=== PATIENT | male | born 1980 | race African-American/Black ===

== ENCOUNTER 2021-04-21 14:19 | Emergency (ER) | payer OTHER ==
[~2021-04-21] VITALS: Ht 177.8 cm; Wt 74.8 kg
[2021-04-21] MEDS ORDERED: KETOROLAC TROMETH 60MG/2ML VIAL IM ONE (15:15)
[2021-04-21] MEDS ORDERED: METHOCARBAMOL 500 MG TAB PO ONE (15:15)
[2021-04-21 15:31] VITALS: BP 143/76
[2021-04-21] MEDS ORDERED: BACL10TA PO (15:44)
[2021-04-21] MEDS ORDERED: IBUP800T27 PO (15:44)
== END 2021-04-21 15:47 | disposition home or self-care (01) ==
LOC: ER 14:19
DX: M43.6 Torticollis (principal); Z79.1 Long term (current) use of non-steroidal anti-inflammatories (NSAID); Z79.899 Other long term (current) drug therapy
CPT/HCPCS: 96372; 99283; J1885

== ENCOUNTER 2021-09-24 10:05 | Emergency (ER) | payer OTHER ==
[~2021-09-24] VITALS: Ht 180.3 cm; Wt 85.7 kg
[~2021-09-24 10:05] MED LIST: BACL10TA PO; IBUP800T27 PO
[2021-09-24 11:21] LABS: Albumin 4.1 g/dL (3.4-5.0); Calcium 9.6 mg/dL (8.5-10.1); Magnesium 2.5 mg/dL (1.6-2.6); Potassium 4.5 mmol/L (3.5-5.1)
[2021-09-24 11:25] LABS: BUN/Creatinine Ratio 6.7; Bilirubin, Total 0.4 mg/dL (0.2-1.0); Total Protein 7.9 g/dL (6.4-8.2)
[2021-09-24 11:27] LABS: Basophils # (auto) 0 10 ^3/uL (0-0.2); Basophils % (auto) 0.9 % (0.0-2.0); Eosinophils # (auto) 0.1 10 ^3/uL (0-0.8); Eosinophils % (auto) 1.3 % (0.0-7.0); Hematocrit 42.5 % (41.0-53.0); Nucleated Red Blood Cells % 0.1 %; Red Blood Cells 4.36 10^6/uL (4.5-5.90); White Blood Cell 5.3 10^3/uL (4.4-10.8)
[2021-09-24 11:28] LABS: Hemoglobin 14.5 g/dL (13.5-17.5); Lymphocytes # (auto) 2.2 10 ^3/uL (0.4-5.4); Mean Corpuscular Hemoglobin 33.4 pg (28.0-32.0); Mean Corpuscular Hgb Conc. 34.2 g/dL (32.0-36.0); Mean Corpuscular Volume 97.5 fL (80.0-100.0); Monocytes # (auto) 0.3 10 ^3/uL (0-1.3); Monocytes % (auto) 6.6 % (0.0-12.0); Neutrophils # (auto) 2.6 10 ^3/uL (1.6-8.6); Neutrophils % (auto) 50.2 % (37.0-80.0); Red Cell Distribution Width 13.2 % (11.8-14.3)
[2021-09-24 14:18] LABS: Urine Bacteria NONE SEEN /hpf (None Seen); Urine Blood Negative /uL (Negative); Urine WBC <1 /hpf (0 - 3)
[2021-09-24 15:26] VITALS: BP 130/70
[2021-09-24] MEDS ORDERED: DICL1GEL83 EX (16:09)
== END 2021-09-24 16:16 | disposition home or self-care (01) ==
LOC: ER 10:05
DX: M43.6 Torticollis (principal); M62.838 Other muscle spasm; Z79.1 Long term (current) use of non-steroidal anti-inflammatories (NSAID); Z79.899 Other long term (current) drug therapy
CPT/HCPCS: 36415; 71045; 80053; 81001; 83735; 84484; 85025; 93005